=== PATIENT | male | born 1990 | race Caucasian/White ===

== ENCOUNTER 2020-12-06 07:29 | Day surgery (SDC) | payer OTHER ==
[~2020-12-06] VITALS: Ht 182.9 cm; Wt 76.7 kg
[2020-12-06] MEDS ORDERED: PANT40TA6 PO (08:12)
[2020-12-06] MEDS ORDERED: VENL37.52 PO (08:12)
[2020-12-06] MEDS ORDERED: AMLO-150 PO (08:12)
[2020-12-06] MEDS ORDERED: ADAL40KI SQ (08:12)
[2020-12-06] MEDS ORDERED: ONDA4TAB7 PO (08:12)
[2020-12-06] MEDS ORDERED: METH36TA4 PO (08:12)
[2020-12-06] MEDS ORDERED: BUPR300T49 PO (08:12)
[2020-12-06] MEDS ORDERED: METO5TAB57 PO (08:12)
[2020-12-06] MEDS ORDERED: ALPR0.5T7 PO (08:12)
[2020-12-06] MEDS ORDERED: PROP60TA PO (08:12)
[2020-12-06] MEDS ORDERED: ATOR40TA78 PO (08:12)
[2020-12-06 08:13] VITALS: BP 122/87
[2020-12-06] MEDS ORDERED: SODIUM CHLORIDE 0.9% 1,000 ML IV SCH (08:30)
[2020-12-06] MEDS ORDERED: LIDOCAINE-MPF 1%, 5ML ONE (09:37)
[2020-12-06 09:51] LABS: INTERNATIONAL NORMALIZED RATIO 1.09 (0.93-1.1); PROTHROMBIN TIME 11.6 Seconds (9.6-11.5)
[2020-12-06] MEDS ORDERED: NALOXONE 1 MG/ML, 2ML ONE (09:56)
[2020-12-06] MEDS ORDERED: MIDAZOLAM 1 MG/ML, 5ML ONE ×2 (09:56)
[2020-12-06] MEDS ORDERED: FENTANYL PF 100 MCG/2ML ONE (09:56)
[2020-12-06] MEDS ORDERED: FLUMAZENIL 0.1 MG/1 ML, 5ML ONE (09:56)
== END 2020-12-06 11:05 | disposition home or self-care (01) ==
LOC: RAD 07:29
PROVIDERS: ATTEND Internal Medicine Gastroenterology
DX: R11.2 Nausea with vomiting, unspecified (principal); K74.00 Hepatic fibrosis, unspecified; K76.0 Fatty (change of) liver, not elsewhere classified; I10 Essential (primary) hypertension; R77.8 Other specified abnormalities of plasma proteins; E83.01 Wilson's disease; F41.9 Anxiety disorder, unspecified; G47.30 Sleep apnea, unspecified; Z88.8 Allergy status to other drugs, medicaments and biological substances; Z91.040 Latex allergy status; Z88.0 Allergy status to penicillin; Z98.890 Other specified postprocedural states; Z79.899 Other long term (current) drug therapy
CPT/HCPCS: 36415; 47000; 76942; 85610; 88307; 88313; 99156; J2250; J3010; J7030; J2310

== ENCOUNTER 2020-12-18 22:02 | Emergency (ER) | payer OTHER ==
[~2020-12-18] VITALS: Ht 185.4 cm; Wt 74.2 kg
[~2020-12-18 22:02] MED LIST: ADAL40KI SQ; ALPR0.5T7 PO; AMLO-150 PO; ATOR40TA78 PO; BUPR300T49 PO; METH36TA4 PO; METO5TAB57 PO; ONDA4TAB7 PO; PANT40TA6 PO; PROP60TA PO; VENL37.52 PO
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
[2020-12-18 23:13] LABS: BASOPHILS % (AUTO) 1 % (0-1); EOSINOPHILS % (AUTO) 1 % (1-7); LYMPHOCYTES % (AUTO) 35 % (22-44); MEAN CORPUSCULAR HEMOGLOBIN 32.7 pg (27.5-34.5); MEAN PLATELET VOLUME 7.5 fL (7.4-10.4); MONOCYTES % (AUTO) 10 % (2-9); NEUTROPHILS % (AUTO) 54 % (42-75); PLATELET COUNT 464 x10^3/uL (130-400); RED BLOOD COUNT 3.72 x10^6/uL (4.38-5.82); RED CELL DISTRIBUTION WIDTH 15.8 % (9.4-14.8)
[2020-12-18 23:16] LABS: ALBUMIN 3.1 g/dL (3.4-5.0); ANION GAP 6 mmol/L (5-15); CALCIUM 9.3 mg/dL (8.5-10.1); CHLORIDE 103 mmol/L (98-107)
[2020-12-18 23:20] LABS: ALANINE AMINOTRANSFERASE 89 U/L (12-78); ALKALINE PHOSPHATASE 377 U/L (45-117); BILIRUBIN,TOTAL 1.1 mg/dL (0.2-1.0); CREATININE 0.82 mg/dL (0.7-1.3); TOTAL PROTEIN 8.5 g/dL (6.4-8.2)
[2020-12-18] MEDS ORDERED: LORazepam 2 MG/ML, 1ML IVPush ONE (23:30)
[2020-12-18] MEDS ORDERED: LORazepam 2 MG/ML, 1ML ONE (23:46)
[2020-12-19 00:38] VITALS: BP 119/81
== END 2020-12-19 00:58 | disposition home or self-care (01) ==
LOC: ED 23:00
DX: F41.1 Generalized anxiety disorder (principal); E83.01 Wilson's disease; R25.1 Tremor, unspecified; I10 Essential (primary) hypertension; E78.00 Pure hypercholesterolemia, unspecified
CPT/HCPCS: 36415; 80053; 83735; 85025; 96374; 99283; J2060